=== PATIENT | female | born 1955 | race Caucasian/White ===

== ENCOUNTER 2017-12-04 01:00 | Emergency (ER) | payer OTHER ==
[~2017-12-04] VITALS: Ht 167.6 cm; Wt 158.8 kg
[2017-12-04 01:04] VITALS: Ht 167.6 cm; Wt 158.8 kg
[2017-12-04 03:33] LABS: CARBON DIOXIDE 24.4 mmol/L (21-32); CHLORIDE SERUM 101 mmol/L (98-107); CREATININE SERUM 0.8 mg/dL (0.6-1.0); GFR1 > 60 mL/min; GLUCOSE SERUM 165 mg/dL (74-106); POTASSIUM SERUM 4.2 mmol/L (3.5-5.1); SODIUM SERUM 137 mmol/L (136-145)
[2017-12-04 05:24] VITALS: BP 114/70
== END 2017-12-04 06:01 | disposition home or self-care (01) ==
LOC: ED 01:00
PROVIDERS: Emergency Medicine
DX: R25.2 Cramp and spasm (principal); Z88.6 Allergy status to analgesic agent
CPT/HCPCS: 83880; J2270; Q0092